=== PATIENT | male | born 1985 | race Caucasian/White ===

== ENCOUNTER 2020-05-23 14:10 | Emergency (ER) | payer BC ==
[~2020-05-23] VITALS: Ht 190.5 cm; Wt 163.3 kg
[2020-05-23 15:29] LABS: BASOPHILS # (AUTO) 0.1 X10'3 (0-0.2); BASOPHILS % (AUTO) 0.9 % (0-1); EOSINOPHILS # (AUTO) 0.2 X10'3 (0-0.9); EOSINOPHILS % (AUTO) 2.1 % (0-6); HEMATOCRIT 44.5 % (42.0-52.0); HEMOGLOBIN 14.5 g/dl (14.0-17.9); LYMPHOCYTES # (AUTO) 2.5 X10'3 (1.1-4.8); LYMPHOCYTES % (AUTO) 25.5 % (21-51); MEAN CORPUSCULAR HEMOGLOBIN 28.3 PG (27.0-31.0); MEAN CORPUSCULAR HGB CONC 32.6 g/dL (33.0-36.5); MEAN CORPUSCULAR VOLUME 86.7 FL (78-98); MEAN PLATELET VOLUME 8.4 FL (7.4-10.4); MONOCYTES # (AUTO) 0.7 X10'3 (0-0.9); MONOCYTES % (AUTO) 7.2 % (2-12); NEUTROPHILS # (AUTO) 6.2 X10'3 (1.8-7.7); NEUTROPHILS % (AUTO) 64.3 % (42-75); PLATELET COUNT 270 X10'3 (140-440); RED BLOOD COUNT 5.14 X10'6 (4.70-6.10); RED CELL DISTRIBUTION WIDTH 14.3 % (11.5-14.5); WHITE BLOOD COUNT 9.6 X10'3 (4.5-11.0)
[2020-05-23 15:41] LABS: ALANINE AMINOTRANSFERASE 53 U/L (12-78); ALBUMIN 3.9 G/DL (3.4-5.0); ALKALINE PHOSPHATASE 70 IU/L (46-116); ANION GAP 11 (8-16); ASPARTATE AMINO TRANSFERASE 32 U/L (10-37); BILIRUBIN,TOTAL 0.2 MG/DL (0.1-1.0); BLOOD UREA NITROGEN 19 MG/DL (7-18); BUN/CREATININE RATIO 18.8 (5.4-32.0); CALCIUM 8.9 MG/DL (8.5-10.1); CHLORIDE 107 MMOL/L (99-107); CREATININE 1.01 MG/DL (0.60-1.10); GLUCOSE 92 MG/DL (70-104); LIPASE 80 U/L (73-393); POTASSIUM 3.9 MMOL/L (3.5-5.1); SODIUM 143 MMOL/L (135-145); TOTAL CARBON DIOXIDE 25.4 MMOL/L (24-32); TOTAL PROTEIN 7.8 G/DL (6.4-8.2); eGFR 85 ML/MIN
[2020-05-23 17:09] LABS: CLARITY,URINE SLIGHTLY CLOUDY (Clear); COLOR,URINE YELLOW (Yellow); GLUCOSE, URINE NEGATIVE (Neg); KETONES,URINE NEGATIVE (Neg); LEUKOCYTE ESTERASE ,URINE NEGATIVE (Neg); NITRITES, URINE NEGATIVE (Neg); OCCULT BLOOD,URINE TRACE-INTACT (Neg); PH,URINE 5.5 (4.8-8.0); PROTEIN,URINE NEGATIVE (Neg); UROBILINOGEN,URINE 0.2 E.U/dL (0.2-1.0)
[2020-05-23 17:17] LABS: UA COLLECTION TYPE CLN CATCH MIDSTREAM
[2020-05-23 17:18] LABS: MUCUS STRANDS MANY /LPF (Neg); SQUAMOUS EPITHELIAL CELL,UR FEW /LPF (FEW)
[2020-05-23 17:20] LABS: BACTERIA,URINE NONE SEEN /HPF (Neg); RBC,URINE 0-2 /HPF (0-2); WBC,URINE 0-4 /HPF (0-4)
--- NOTE | 2020-05-23 18:30 | NUR ---
US ATG BEDSIDE
[2020-05-23 19:12] VITALS: BP 150/86
== END 2020-05-23 19:17 | disposition home or self-care (01) ==
LOC: ER 14:11
DX: K42.9 Umbilical hernia without obstruction or gangrene (principal)
CPT/HCPCS: 36415; 76705; 80053; 81001; 83690; 85025; 99284

== ENCOUNTER 2021-04-24 05:57 | Day surgery (SDC) | payer BC ==
[2021-04-19 14:57] LABS: ALBUMIN 3.7 G/DL (3.4-5.0); ALKALINE PHOSPHATASE 66 IU/L (46-116); BLOOD UREA NITROGEN 20 MG/DL (7-18); BUN/CREATININE RATIO 18.9 (5.4-32.0); CALCIUM 8.7 MG/DL (8.5-10.1); CHLORIDE 105 MMOL/L (99-107); CREATININE 1.06 MG/DL (0.60-1.10); PRE OP ALT 47 U/L (30-65); PRE OP ANION GAP 9 (8-16); PRE OP AST 35 U/L (10-37); PRE OP BILIRUB, TOTAL 0.3 MG/DL (0.0-1.0); PRE OP GLUCOSE 97 MG/DL (70-104); PRE OP SODIUM 142 MMOL/L (135-145); TOTAL CARBON DIOXIDE 28.4 MMOL/L (24-32); TOTAL PROTEIN 7.4 G/DL (6.4-8.2); eGFR 80 ML/MIN
[2021-04-19 14:58] LABS: PRE OP POTASSIUM 4.4 MMOL/L (3.4-5.1)
[~2021-04-24] VITALS: Ht 193 cm; Wt 158.8 kg
[2021-04-24] VITALS (9 sets, daily range): BP systolic 113–159; BP diastolic 67–110
[~2021-04-24 05:57] MED LIST: NO HOME MEDS; ceFAZolin/D5W- 1GM premix 50 ML IV ONE; cefazolin/dext.iso 2gm/50ml IV ONE; famotidine 20mg tablet PO ONE; ringers solution, lacted 1,000 ML IV SCH
[2021-04-24] MEDS ORDERED: BUPIVAcaine/PF 2.5 mg/ml (0.25%) 30ml vial ONE (07:01)
[2021-04-24] MEDS ORDERED: BUPIVAcaine/PF 2.5mg/ml (0.25%) 10ml vial ONE (07:01)
[2021-04-24] MEDS ORDERED: LIDOcaine 1% 30ml preserv. free vial ONE (07:01)
[2021-04-24] MEDS ORDERED: BUPIVACAINE liposomal/PF 13.3 MG/ML vial IM ONE (07:02)
[2021-04-24 07:39] LABS: BASOPHILS # (AUTO) 0.1 X10'3 (0-0.2); BASOPHILS % (AUTO) 1.1 % (0-1); EOSINOPHILS # (AUTO) 0.2 X10'3 (0-0.9); EOSINOPHILS % (AUTO) 2.3 % (0-6); HEMATOCRIT 41.9 % (42.0-52.0); HEMOGLOBIN 14.3 g/dl (14.0-17.9); LYMPHOCYTES # (AUTO) 2.1 X10'3 (1.1-4.8); LYMPHOCYTES % (AUTO) 26.4 % (21-51); MEAN CORPUSCULAR HEMOGLOBIN 29.5 PG (27.0-31.0); MEAN CORPUSCULAR HGB CONC 34.1 g/dL (33.0-36.5); MEAN CORPUSCULAR VOLUME 86.5 FL (78-98); MEAN PLATELET VOLUME 8.5 FL (7.4-10.4); MONOCYTES # (AUTO) 0.6 X10'3 (0-0.9); MONOCYTES % (AUTO) 7.5 % (2-12); NEUTROPHILS % (AUTO) 62.7 % (42-75); PLATELET COUNT 254 X10'3 (140-440); RED BLOOD COUNT 4.85 X10'6 (4.70-6.10); RED CELL DISTRIBUTION WIDTH 14.3 % (11.5-14.5)
[2021-04-24] MEDS ORDERED: sevoflurane 250ml liquid IH ONE (08:32)
[2021-04-24] MEDS ORDERED: ondansetron/PF 4mg/2ml inj ONE (08:32)
[2021-04-24] MEDS ORDERED: midazolam 1 mg/ML 2ml injection ONE (08:42)
[2021-04-24] MEDS ORDERED: fentaNYL /PF 50mcg/ml 5ml ampule ONE (08:42)
[2021-04-24] MEDS ORDERED: dexamethasone sod phosphate 4mg/ml inj. ONE (09:04)
[2021-04-24] MEDS ORDERED: propofol inj 20 ML IV ONE ×2 (09:05)
[2021-04-24] MEDS ORDERED: LIDOcaine 2% (20mg/ml) 5ml vial ONE (09:05)
[2021-04-24] MEDS ORDERED: rocuronium 10mg/ml inj IV ONE ×2 (09:05→09:46)
[2021-04-24] MEDS ORDERED: glycopyrrolate 0.2mg/ml inj ONE (09:46)
[2021-04-24] MEDS ORDERED: neostigmine methylsulfate 1 MG/ML 10ml vial ONE (09:46)
--- NOTE | 2021-04-24 09:57 | NUR ---
Received from OR via [facility] IN STABLE CONDITION, accompanied by Anesthesiologist and BILINGUAL CUSTOMER SERVICE report given by BILINGUAL CUSTOMER SERVICE AND Anesthesiolgist. Addendum: 04/24/21 at 1019 by Maria Del Rosario Donald RN Amended: Links added.
[2021-04-24] MEDS ORDERED: morphine 2 MG/ML inj. syringe IV PRN (10:00)
[2021-04-24] MEDS ORDERED: meperidine/PF 25mg/ml syringe IV PRN ×3 (10:00)
[2021-04-24] MEDS ORDERED: ondansetron/PF 4mg/2ml inj IV PRN (10:00)
[2021-04-24] MEDS ORDERED: morphine 4 MG/ML inj SYRINge IV PRN (10:00)
[2021-04-24] MEDS ORDERED: hydrALAZINE 20mg/ml inj. IV PRN (10:00)
[2021-04-24] MEDS ORDERED: ketorolac trometh. 30mg/ml inj. IV ONE (10:00)
[2021-04-24] MEDS ORDERED: ringers solution, lacted 1,000 ML IV SCH (10:00)
[2021-04-24] MEDS ORDERED: proCHLORperazine 10 MG/2 ml inj IV PRN (10:00)
[2021-04-24] MEDS ORDERED: labetalol 20mg/4ml (5mg/ml) syringe IV PRN (10:00)
[2021-04-24] MEDS ORDERED: acetaminophen 1,000mg/100ml IV 100 ML IV PRN (10:00)
[2021-04-24] MEDS ORDERED: oxyCODONE/APAP 5-325mg tablet PO PRN ×2 (10:15)
--- NOTE | 2021-04-24 10:35 | NUR ---
PATIENT GIVEN IS AND INSTRUCTED ON HOW TO USE IT. Addendum: 04/24/21 at 1036 by Maria Del Rosario Donald RN Amended: Links added.
[2021-04-24] MEDS ORDERED: oxyCODONE IR 5mg (immed. release) tablet PO ONE (10:40)
--- NOTE | 2021-04-24 11:37 | NUR ---
PATIENT DISCHARGED HOME FROM PACU IN STABLE CONDITION AFTER WRITTEN AND VERBAL DISCHARGE INSTUCTIONS GIVEN. PATIENT GAVE VERBAL UNDERSTANDING OF INSTRUCTIONS. PATIENT LEFT FACILITY VIA WHEELCHAIR WITH RN. Addendum: 04/24/21 at 1148 by Maria Del Rosario Donald RN Amended: Links added.
== END 2021-04-24 11:37 | disposition home or self-care (01) ==
LOC: PAS 05:57
PROVIDERS: ATTEND Surgery
DX: K42.0 Umbilical hernia with obstruction, without gangrene (principal); G47.33 Obstructive sleep apnea (adult) (pediatric); E66.9 Obesity, unspecified; Z68.41 Body mass index [BMI] 40.0-44.9, adult; Z79.899 Other long term (current) drug therapy; Z20.822 Contact with and (suspected) exposure to COVID-19; Z98.52 Vasectomy status
CPT/HCPCS: 36415; 49653; 64488; 80053; 85025; 93005; C1781; C9290; J0131; J0690; J1100; J1885; J2175; J2250; J2704; J2710; J3010; J3490; J7030; J7120; S2900; U0003; U0005; Z7506; Z7508; Z7512; A4215; A4618; J2405